=== PATIENT | male | born 1985 | race Caucasian/White ===

== ENCOUNTER 2020-10-13 04:27 | Emergency (ER) | payer BC, OTHER ==
[2020-10-13 04:49] VITALS: BP 139/87; PULSE 90
[2020-10-13] MEDS ORDERED: Alum Hydrox/Mag Hydrox/Simeth 30 ML, Lidocaine 2% 15 ML PO ONE ×2 (05:21)
--- NOTE | 2020-10-13 05:21 | EDM.PDOC ---
ED HPI GENERAL MEDICAL PROBLEM - General Chief Complaint: Chest Pain Stated Complaint: COVID POSITIVE/CHEST PAIN Time Seen by Provider: 10/13/20 05:12 - History of Present Illness INITIAL COMMENTS - FREE TEXT/NARRATIVE: 35-year-old male presents the emergency room with chest pain. Patient awoke this morning with low substernal chest pain. The patient has been Covid positive for several days he is had fevers this is for the most part resolved she has had loss of flavor and smell this is not resolved. He has had aches and pains. He has not tried anything for this. Patient denies any significant past medical history. He does smoke however. Family history is his only remarkable for the patient's grandfather having a stent placed in his 80s. No other family history of heart problems Chest Pain Score (Numeric/FACES): 5 - Related Data Allergies Allergy/AdvReac Type Severity Reaction Status Date / Time No Known Allergies Allergy Verified 10/13/20 04:59 Home Meds: Home Meds Famotidine [Acid Controller] 20 mg PO BID #60 tablet 10/13/20 [Rx] Sucralfate [Carafate] 1 gm PO ASDIRECTED #28 tab 10/13/20 [Rx] Past Medical History Respiratory History: Reports: Pneumonia, Recurrent - Infectious Disease History Infectious Disease History: Reports: Novel Coronavirus Social & Family History - Tobacco Use Tobacco Use Status *Q: Current Some Day Tobacco User Years of Tobacco use: 10 Packs/Tins Daily: 0.3 - Caffeine Use Caffeine Use: Reports: Coffee - Recreational Drug Use Recreational Drug Use: No - Living Situation & Occupation Living situation: Reports: Occupation: Employed ED ROS GENERAL - Review of Systems Review Of Systems: See Below Constitutional: Reports: Fever, Chills HEENT: Reports: Rhinitis, Other (Loss of taste and smell) Respiratory: Reports: Cough. Denies: Shortness of Breath Cardiovascular: Reports: Chest Pain (This started this morning) Endocrine: Reports: Polyuria GI/Abdominal: Reports: No Symptoms Musculoskeletal: Reports: Other (Aches and pains) Skin: Reports: No Symptoms Neurological: Reports: No Symptoms ED EXAM, GENERAL - Physical Exam Exam: See Below General Appearance: Alert, No Apparent Distress Head: Atraumatic, Normocephalic Neck: Normal Inspection, Supple, Non-Tender, Full Range of Motion Respiratory/Chest: No Respiratory Distress, Lungs Clear, Normal Breath Sounds Cardiovascular: Regular Rate, Rhythm, No Edema, No Murmur GI/Abdominal: Normal Bowel Sounds, Soft, Tender (Yajaira tenderness in the superior epigastric area). No: Guarding, Rigid, Rebound Back Exam: Normal Inspection, Full Range of Motion. No: CVA Tenderness (L), CVA Tenderness (R) Extremities: Normal Inspection, No Pedal Edema Neurological: Alert, Oriented, Normal Cognition #1 Interpretation EKG Date: 10/13/20 Rhythm: NSR Rate (Beats/Min): 88 [place]: Normal P-Wave: Present QRS: Normal ST-T: Normal QT: Normal Comparison: NA - No Prior EKG EKG Interpretation Comments: Normal EKG Course - Vital Signs Last Recorded V/S: Last Vital Signs Temp 37.1 C 10/13/20 04:46 Pulse 90 10/13/20 04:46 Resp 11 L 10/13/20 04:46 BP 139/87 10/13/20 04:46 Pulse Ox 96 10/13/20 04:46 - Orders/Labs/Meds Orders: Active Orders 24 hr Category Date Time Status Chest 1V Frontal [CR] Stat Exams 10/13/20 05:23 Taken INR,PT,PROTHROMBIN TIME [COAG] Stat Lab 10/13/20 04:54 Results PTT,PARTIAL THROMBOPLSTIN TIME [COAG] Stat Lab 10/13/20 04:54 Results Labs: Laboratory Tests 10/13/20 10/13/20 10/13/20 Range/Units 04:54 04:54 04:54 WBC 7.45 (4.23-9.07) K/mm3 RBC 5.36 (4.63-6.08) M/mm3 Hgb 16.4 (13.7-17.5) gm/dl Hct 49.2 (40.1-51.0) % MCV 91.8 D (79.0-92.2) fl MCH 30.6 (25.7-32.2) pg MCHC 33.3 (32.2-35.5) g/dl RDW Std Deviation 46.4 H (35.1-43.9) fL Plt Count 174 D (163-337) K/mm3 MPV 9.8 (9.4-12.3) fl Neut % (Auto) 66.6 (34.0-67.9) % Lymph % (Auto) 13.6 L (21.8-53.1) % [place] % (Auto) 18.9 H (5.3-12.2) % Eos % (Auto) 0.5 L (0.8-7.0) Baso % (Auto) 0.3 (0.1-1.2) % Neut # (Auto) 4.96 (1.78-5.38) K/mm3 Lymph # (Auto) 1.01 L (1.32-3.57) K/mm3 [place] # (Auto) 1.41 H (0.30-0.82) K/mm3 Eos # (Auto) 0.04 (0.04-0.54) K/mm3 Baso # (Auto) 0.02 (0.01-0.08) K/mm3 APTT 33.3 H (21.7-31.4) SECONDS D-Dimer, Quantitative (0.19-0.50) mg/L Sodium 141 (136-145) mEq/L Potassium 4.4 (3.5-5.1) mEq/L Chloride 104 (98-107) mEq/L Carbon Dioxide 27 (21-32) mEq/L Anion Gap 14.4 (5-15) BUN 9 (7-18) mg/dL Creatinine 1.1 (0.7-1.3) mg/dL Est Cr Clr Drug Dosing 99.83 mL/min Estimated GFR (MDRD) > 60 (>60) mL/min BUN/Creatinine Ratio 8.2 L (14-18) Glucose 131 H (70-99) mg/dL Calcium 8.5 (8.5-10.1) mg/dL Total Bilirubin 0.4 (0.2-1.0) mg/dL AST 20 (15-37) U/L ALT 31 (16-63) U/L Alkaline Phosphatase 88 (46-116) U/L Troponin I < 0.017 (0.00-0.056) ng/mL Total Protein 7.4 (6.4-8.2) g/dl Albumin 3.9 (3.4-5.0) g/dl Globulin 3.5 gm/dL Albumin/Globulin Ratio 1.1 (1-2) Range/Units 04:54 WBC (4.23-9.07) K/mm3 RBC (4.63-6.08) M/mm3 Hgb (13.7-17.5) gm/dl Hct (40.1-51.0) % MCV (79.0-92.2) fl MCH (25.7-32.2) pg MCHC (32.2-35.5) g/dl RDW Std Deviation (35.1-43.9) fL Plt Count (163-337) K/mm3 MPV (9.4-12.3) fl Neut % (Auto) (34.0-67.9) % Lymph % (Auto) (21.8-53.1) % [place] % (Auto) (5.3-12.2) % Eos % (Auto) (0.8-7.0) Baso % (Auto) (0.1-1.2) % Neut # (Auto) (1.78-5.38) K/mm3 Lymph # (Auto) (1.32-3.57) K/mm3 [place] # (Auto) (0.30-0.82) K/mm3 Eos # (Auto) (0.04-0.54) K/mm3 Baso # (Auto) (0.01-0.08) K/mm3 APTT (21.7-31.4) SECONDS D-Dimer, Quantitative 0.33 (0.19-0.50) mg/L Sodium (136-145) mEq/L Potassium (3.5-5.1) mEq/L Chloride (98-107) mEq/L Carbon Dioxide (21-32) mEq/L Anion Gap (5-15) BUN (7-18) mg/dL Creatinine (0.7-1.3) mg/dL Est Cr Clr Drug Dosing mL/min Estimated GFR (MDRD) (>60) mL/min BUN/Creatinine Ratio (14-18) Glucose (70-99) mg/dL Calcium (8.5-10.1) mg/dL Total Bilirubin (0.2-1.0) mg/dL AST (15-37) U/L ALT (16-63) U/L Alkaline Phosphatase (46-116) U/L Troponin I (0.00-0.056) ng/mL Total Protein (6.4-8.2) g/dl Albumin (3.4-5.0) g/dl Globulin gm/dL Albumin/Globulin Ratio (1-2) Meds: Medications Discontinued Medications Generic Name Dose Route Start Last Admin Trade Name Marielos PRN Reason Stop Dose Admin Al Hydroxide/Mg Hydroxide 30 0 ml 10/13/20 05:21 10/13/20 05:36 ml/ Lidocaine HCl 15 ml PO 10/13/20 05:22 45 ml ONETIME ONE Administration Sucralfate 1 gm 10/13/20 06:22 Sucralfate Suspension 1 Gm/10 Ml Cup PO 10/13/20 06:23 ONETIME ONE - Re-Assessments/Exams Free Text/Narrative Re-Assessment/Exam: 10/13/20 06:33 Chest x-ray looks normal as does EKG. Troponin and D-dimer are unremarkable CBC is consistent with a relative lymphopenia. Patient was given a GI cocktail and this helped significantly. This was followed up with Carafate he will be sent home with Carafate before meals and at bedtime for 1 week and Pepcid twice daily with instructions to decrease the Pepcid to once a day when he is doing better Departure - Departure Time of Disposition: 06:45 Disposition: Home, Self-Care 01 Clinical Impression: Reflux esophagitis, COVID-19 - Discharge Information Referrals: PCP,None [Primary Care Provider] - Forms: ED Department Discharge Additional Instructions: Return to the emergency room with any questions problems or worsening symptoms. 2 prescriptions have been sent to the [place] [facility] in the [place] [facility]. This includes famotidine, or Pepcid, take 1 twice daily for a minimum of 7 days or until you are feeling better then take 1 daily thereafter. This can be picked up [id number] and does not require prescription. The 2nd medication is sucralfate you take this for 7 days just before your morning noon and evening meals and again at bedtime. Follow-up with your regular healthcare provider as needed Sepsis Event Note (ED) - Focused Exam Vital Signs: Vital Signs Temp Pulse Resp BP Pulse Ox 10/13/20 04:46 37.1 C 90 11 L 139/87 96 - My Orders Last 24 Hours: My Active Orders 10/13/20 04:54 INR,PT,PROTHROMBIN TIME [COAG] Stat PTT,PARTIAL THROMBOPLSTIN TIME [COAG] Stat 10/13/20 05:23 Chest 1V Frontal [CR] Stat - Assessment/Plan Last 24 Hours: My Active Orders 10/13/20 04:54 INR,PT,PROTHROMBIN TIME [COAG] Stat PTT,PARTIAL THROMBOPLSTIN TIME [COAG] Stat 10/13/20 05:23 Chest 1V Frontal [CR] Stat
[2020-10-13] MEDS ORDERED: Sucralfate Suspension 1 GM/10 ML Cup PO ONE (06:22)
--- NOTE | 2020-10-13 06:38 | CR ---
Chest: Frontal view of the chest was obtained. Comparison: Prior chest x-ray of 03/06/17. Heart size and mediastinum are within normal limits. Minimal scarring is seen within the left lung base. Lungs are otherwise clear with no acute parenchymal change. Bony structures show nothing acute. Impression: 1. Slight scarring within the left lung base. 2. Nothing acute is appreciated on frontal chest x-ray. Diagnostic code #2
== END 2020-10-13 07:05 | disposition home or self-care (01) ==
LOC: JD.ED 04:27
DX: U07.1 COVID-19 (principal); K21.00 Gastro-esophageal reflux disease with esophagitis, without bleeding; Z72.0 Tobacco use
CPT/HCPCS: 36415; 71045; 80053; 84484; 85025; 85379; 85610; 85730; 93005; 99285; A9270; 93010; 99284

== ENCOUNTER 2023-05-20 12:51 | Emergency (ER) | payer BC ==
[2023-05-20 15:13] VITALS: BP 126/74; PULSE 86
== END 2023-05-20 15:12 | disposition home or self-care (01) ==
LOC: JD.ED 12:51
DX: J32.9 Chronic sinusitis, unspecified (principal); B96.89 Other specified bacterial agents as the cause of diseases classified elsewhere; J02.9 Acute pharyngitis, unspecified; H65.02 Acute serous otitis media, left ear; Z86.16 Personal history of COVID-19; Z87.891 Personal history of nicotine dependence; Z79.899 Other long term (current) drug therapy
CPT/HCPCS: 99283